=== PATIENT | female | born 1970 | race Caucasian/White ===

== ENCOUNTER 2017-01-07 16:57 | Emergency (ER) | payer BC ==
[~2017-01-07] VITALS: Ht 160 cm; Wt 127.0 kg
[~2017-01-07 16:57] MED LIST: AZITHROMYCIN500 MG PO; FERROUS SULFAT325 M1 PO; FLORASTOR 33 MG1 CAP PO; FLORASTOR250 MG PO; LEVAQUIN500 MG PO; LEVEMIR100 U/ML SUBQ; METFORMIN HCL500 MG PO; OMNICEF300 MG PO; PHOS-NAK1 PDR PO
[2017-01-07 17:06] VITALS: BP 168/110
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
--- NOTE | 2017-01-07 17:33 | NUR ---
Patient being evaluated by physician at bedside.
[2017-01-07] MEDS ORDERED: NACL 0.9% 1,000 ML IV ONE ×2 (17:45→18:30)
[2017-01-07] MEDS ORDERED: ONDANSETRON 4 MG/2 ML VIAL IVP ONE (17:45)
[2017-01-07] MEDS ORDERED: MORPHINE SULFATE 4 MG/ML SYR IVP ONE (17:45)
--- NOTE | 2017-01-07 18:10 | NUR ---
Consent for CT signed by patient.
--- NOTE | 2017-01-07 18:52 | NUR ---
Patient appears to be resting comfortably in bed. Vital Signs within normal limits. Respirations even and unlabored. Pt awaiting to be taken to CT scan. Family at bedside.
--- NOTE | 2017-01-07 19:19 | NUR ---
Pt report given to Raad RAZO. Transfer of care at this time.
[2017-01-07] MEDS ORDERED: INSULIN HUMAN REGULAR 100 UNITS/ML 10 ML VIAL IVP ONE (19:45)
--- NOTE | 2017-01-07 20:05 | NUR ---
PT TAKEN TO CT SCAN
--- NOTE | 2017-01-07 20:35 | NUR ---
CAME BACK FROM CT SCAN
[2017-01-07] MEDS ORDERED: cefTRIAXone 1,000 MG VIAL ONE (21:43)
[2017-01-07] MEDS ORDERED: ACETAMINOPHEN EXTRA STRENGTH 500 MG TAB PO ONE (22:50)
[2017-01-07 23:05] VITALS: BP 113/80
--- NOTE | 2017-01-07 23:05 | NUR ---
Patient discharged with v/s stable BY DR. WALTERS. Written and verbal after care instructions given and explained. Patient alert, oriented and verbalized understanding of instructions. Ambulatory with steady gait. All questions addressed prior to discharge. ID band removed. Patient advised to follow up with PMD. Rx of MACROBID CAPSULE PO, TYLENOL 325MG PO given. Patient educated on indication of medication including possible reaction and side effects. Opportunity to ask questions provided and answered.
== END 2017-01-07 23:05 | disposition home or self-care (01) ==
LOC: MED 16:57
DX: R55 Syncope and collapse (principal); S20.229A Contusion of unspecified back wall of thorax, initial encounter; E11.65 Type 2 diabetes mellitus with hyperglycemia; N39.0 Urinary tract infection, site not specified; Z79.82 Long term (current) use of aspirin; V89.2XXA Person injured in unspecified motor-vehicle accident, traffic, initial encounter; Y93.89 Activity, other specified; Y92.89 Other specified places as the place of occurrence of the external cause; Y99.8 Other external cause status
CPT/HCPCS: 36415; 70450; 71250; 72125; 72128; 74176; 80053; 81001; 81025; 82948; 84484; 85025; 87086; 96361; 96365; 96375; 99285; J0696; J1815; J2270; J2405; J7030